=== PATIENT | male | born 1960 | race Caucasian/White ===

== ENCOUNTER → 2018-07-10 | Outpatient (CLI) | payer BC ==
--- NOTE | 2018-07-10 13:47 | US ---
EXAMINATION TYPE: US scrotum with doppler. Grayscale and color Doppler Duplex imaging performed of t he scrotum. DATE OF EXAM: 07/10/2018 COMPARISON: NONE CLINICAL HISTORY: N50.8 PAIN SWELLING. Pt states right testicle swelling, pt denies pain EXAM MEASUREMENTS: TESTICLES: Right Testicle: 4.7 x 2.1 x 2.9 cm Left Testicle: 5.3 x 1.8 x 3.6 cm EPIDIDYMIS HEAD: Left Epididymis: 1.4 cm Doppler performed to assess for testicular vascularity; good bilateral color flow and waveforms are s een. Presence of hydroceles: No Presence of varicoceles: No Small microcalcifications scattered throughout bilateral testicles/ In area of pt's palpable/swelli ng there is a probable epididymal cyst= 5.4 x 3.3 x 5.6 cm IMPRESSION: A 5.4 cm thin-walled cystic lesion adjacent to right testicle favors large epididymal cys t.
== END | disposition home or self-care (01) ==
LOC: RADUSWWP 12:46
PROVIDERS: ATTEND Urology
DX: N44.2 Benign cyst of testis (principal)
CPT/HCPCS: 76870; 93975

== ENCOUNTER → 2019-03-25 | Outpatient (CLI) | payer BC ==
--- NOTE | 2019-03-25 17:32 | CT ---
EXAMINATION TYPE: CT abdomen pelvis w con DATE OF EXAM: 03/25/2019 COMPARISON: None INDICATION: Difficulty urinating with strong family history of prostate cancer DLP: 2046.4 mGycm, Automated exposure control for dose reduction was used. CONTRAST: 100 mL of Isovue 300. Study performed with Oral Contrast TECHNIQUE: Axial images were obtained from above the diaphragm to the pubic rami in the axial plane a t 5 mm thick sections. Reconstructed images are reviewed on the computer in the coronal plane. FINDINGS: Limited CT sections are obtained the lung bases. The lung bases are clear. CT ABDOMEN: Liver: Normal Spleen: Normal Pancreas: Normal Adrenal glands: Left adrenal gland is thickened with a lower density structure measuring 1.8 cm in si ze. Been angiomyolipoma. Right adrenal gland appears normal. Gallbladder: Normal Kidneys: No masses are evident. No hydronephrosis is present. No cysts are present. Delayed images were obtained through the kidneys, which remain unremarkable. Aorta: Normal Inferior vena cava: Normal. CT PELVIS: Loops of bowel within the abdomen and pelvis are normal. There are loops of bowel which are incom pletely distended or lack oral contrast limiting their evaluation. Appendix: Normal as visualized. Urinary bladder: Normal. Genitourinary structures: Prostate hypertrophy is present. Punctate calcification is within the prost ate. Osseous structures: No suspicious lytic or sclerotic lesions. IMPRESSIONS: 1. Prostate hypertrophy. This could be further evaluated with MRI or prostate ultrasound.
== END | disposition home or self-care (01) ==
LOC: RADCTMAIN 12:17
PROVIDERS: ATTEND Urology
DX: N40.0 Benign prostatic hyperplasia without lower urinary tract symptoms (principal)
CPT/HCPCS: 74177; Q9967

== ENCOUNTER → 2019-04-14 | Outpatient (CLI) | payer BC ==
--- NOTE | 2019-04-14 15:05 | NM ---
EXAMINATION TYPE: NM bone scan whole body DATE OF EXAM: 04/14/2019 COMPARISON: NONE HISTORY: CT 03/25/2019 Delayed whole-body scanning was performed following the injection of 21 mCi Tc 99m MDP. Images acqui red 4 hours post injection. FINDINGS: Lucent area within the sternum corresponds to a benign-appearing lesion of the sternum. Normal uptake in the shoulders, feet, and right knee appear post arthritic. Faint uptake involving the vertebral column is nonspecific but likely degenerative. There is an area of abnormal uptake involving the medial margin the left pubic symphysis. This is non specific. IMPRESSION: 1. Area of abnormal uptake involving the pubic symphysis on the left is nonspecific. No definite kevin esponding CT abnormality. Metastasis in the differential diagnosis. 2. Faint nonspecific uptake throughout the vertebral column likely degenerative.
== END | disposition home or self-care (01) ==
LOC: RADNMMAIN 09:42
PROVIDERS: ATTEND Urology
DX: R93.89 Abnormal findings on diagnostic imaging of other specified body structures (principal)
CPT/HCPCS: 78306; A9503

== ENCOUNTER → 2019-05-08 | Outpatient (CLI) | payer BC ==
[2019-05-08 14:50] LABS: African American GFR (CKD) >90 (>60 ml/min/1.73 sqM); Blood Urea Nitrogen 23 mg/dL (9-20); Non-African American GFR(CKD) >90 (>60 ml/min/1.73 sqM)
--- NOTE | 2019-05-08 15:35 | CT ---
EXAMINATION TYPE: CT chest wo/w con DATE OF EXAM: 05/08/2019 COMPARISON: None HISTORY: Prostate CA, R/O metastatic disease CT DLP: 1347 mGycm Automated exposure control for dose reduction was used. CONTRAST: CT scan of the chest is performed without and with IV Contrast, patient injected with 100 mL of Isovu e 300. FINDINGS: LUNGS: The lungs are grossly clear, there is no concerning parenchymal mass or nodule identified. Panfilo cified granuloma present in the posterior costophrenic angle. There is no pleural effusion or pneumo thorax seen. The tracheobronchial tree is patent. MEDIASTINUM: There are no greater than 1 cm hilar or mediastinal lymph nodes. No pericardial effusi on is seen. AORTA: No additional significant abnormality is seen. OTHER: 2.4 cm left adrenal mass shows low attenuation in likely represents an adenoma. The spleen is enlarged. Low dense focus in the anterior margin of the left lobe of the liver likely represent cyst s and subcentimeter in size. Sclerotic focus present within the inferior T11 vertebral body measures 8 mm And is felt likely represent bone island. IMPRESSION: Splenomegaly. No evident lung mass. Old granulomatous disease. Indeterminate sclerotic f ocus within the thoracic spine as described, consider follow-up.
== END ==
LOC: RADCTMAIN 14:05
PROVIDERS: ATTEND Radiology Radiation Oncology
DX: C61 Malignant neoplasm of prostate (principal); R16.1 Splenomegaly, not elsewhere classified
CPT/HCPCS: 82565; 84520; 71270; 36415; Q9967

== ENCOUNTER → 2019-05-16 | Outpatient (CLI) | payer BC ==
--- NOTE | 2019-05-19 11:28 | PE ---
EXAMINATION TYPE: PET CT fusion skull to thigh DATE OF EXAM: 05/16/2019 COMPARISON: Nuclear medicine bone scan dated 04/14/2009 CT abdomen pelvis dated 03/25/2019 HISTORY: Neuroendocrine prostatic carcinoma. Small central carcinoma the prostate. TECHNIQUE: Following the intravenous administration of 12.92 mCi of F-18 FDG, whole body images are performed from the skull base to the midthigh. Images are reviewed on the computer in the coronal, a xial, and sagittal planes. Reconstructed rotating images are created on independent workstation and reviewed on the computer. A localization and attenuation correction CT is performed in conjunction with the PET scan. SCAN: Initial treatment strategy FINDINGS: Mediastinal background: 1.5 Abdominal background: 3.15 SKULL BASE AND NECK: No suspicious hypermetabolic uptake. CHEST, MEDIASTINUM, AND HILAR REGION: No suspicious hypermetabolic uptake. ABDOMEN AND PELVIS: No suspicious hypermetabolic uptake. OSSEOUS STRUCTURES: There are foci of hypermetabolic activity within the left inferior greater trocha nter (maximum SUV of 3.2), left ischium (maximum SUV of 6.04), left inferior pubic ramus (maximum SUV of 4.5), left pubic bone (maximum SUV 4.5), and 3 foci within the left hemisacrum (maximum SUV of 4. 5). Abnormal uptake is also seen within L4 (maximum SUV of 3.4). OTHER CT: Right maxillary mucosal thickening versus mucosal retention cyst measures 1.8 cm. Moderate degenerative changes of the cervical spine and lumbar spine. Corresponding with the abnormal areas of FDG uptake there are focal areas of sclerosis and L5 in the left hemisacrum. Heart is enlarged. No pericardial effusion. There is a small likely early calcifying lingular 2 mm pu lmonary nodule that is hyperdense. Calcified granuloma seen at the left lung base. Minimal subsegment al dependent atelectasis. Within the left adrenal gland there is a low-density 2.1 cm left adrenal gl and mass compatible with a benign adrenal adenoma. Pain stranding in the subcutaneous tissues of the anterior pelvis likely relates to recent injury or subcutaneous injections. IMPRESSION: Multifocal osseous metastasis within L4 and the left hemisacrum as well as left proximal femur. No abnormal adenopathy or evidence of visceral metastasis within the chest, abdomen, or pelvis .
== END | disposition home or self-care (01) ==
LOC: RADPETMAIN 14:33
PROVIDERS: ATTEND Internal Medicine Hematology & Oncology
DX: C7A.1 Malignant poorly differentiated neuroendocrine tumors (principal); C79.51 Secondary malignant neoplasm of bone
CPT/HCPCS: 78815; A9552

== ENCOUNTER → 2019-11-26 | Outpatient (CLI) | payer BC ==
[2019-11-26 10:24] LABS: African American GFR (CKD) >90 (>60 ml/min/1.73 sqM); Blood Urea Nitrogen 23 mg/dL (9-20); Non-African American GFR(CKD) >90 (>60 ml/min/1.73 sqM)
--- NOTE | 2019-11-26 12:25 | CT ---
EXAMINATION TYPE: CT abdomen pelvis wo/w con DATE OF EXAM: 11/26/2019 COMPARISON: PET CT May 16, 2019. CT abdomen and pelvis March 25, 2019 HISTORY: Prostate cancer progress study. CT DLP: 1971.2 mGycm, Automated Exposure Control for Dose Reduction was Utilized. CONTRAST: CT scan of the abdomen and pelvis is performed with oral and without and with IV Contrast, patient in jected with 100 mL of Isovue 300. FINDINGS: LUNG BASES: No significant abnormality is appreciated. LIVER/GB: No significant abnormality is appreciated. PANCREAS: No significant abnormality is seen. SPLEEN: No significant abnormality is seen. ADRENALS: There is 0.3 x 1.9 cm left adrenal low density mass, Hounsfield units average -4 on noncon trast consistent with benign lipid rich adenoma. KIDNEYS: There are a few subcentimeter simple-appearing thin-walled cysts scattered throughout both k idneys. No hydronephrosis is noted bilaterally. BOWEL: Oral contrast reaches proximal transverse colon. No suspicious or large bowel dilatation. PROSTATE/SEMINAL VESICLES: Normal-sized prostate. Scattered adjacent pelvic phleboliths. LYMPH NODES: No greater than 1cm abdominal or pelvic lymph nodes are appreciated. OSSEOUS STRUCTURES: Mild multilevel spurring. Facet arthropathy lower lumbar levels. Occasional scler otic focus for reference left central acetabulum on image 51 and a few lesions right proximal femur c oronal images 53 through 56 are all redemonstrated. Lesions corresponding to PET positive areas are n ot clearly identified on this or prior CT. OTHER: Heterogeneous soft tissue in the anterior abdominal wall adjacent umbilicus is now present. Co rrelate clinically for subcutaneous medical injection at this level. IMPRESSION: No suspicious new mass or adenopathy to suggest active neoplastic recurrence. Suspected osseous metastatic disease on comparison PET/CT less well seen on this and prior CT. No definitive ne w focal suspicious osseous lesions.
--- NOTE | 2019-11-27 11:38 | NM ---
EXAMINATION TYPE: NM bone scan whole body DATE OF EXAM: 11/26/2019 COMPARISON: PET/CT 05/16/2019 HISTORY: Prostate cancer Delayed whole-body scanning was performed following the injection of 23.8 mCi Tc 99m MDP. Images acq uired 4 hours post injection. FINDINGS: There is asymmetric focal activity of the left inferior pubic ramus and left pelvis. There is symmetr ic likely degenerative uptake of the bilateral shoulders, sternoclavicular joints, sacroiliac joints, knees, and feet. IMPRESSION: Asymmetric activity of the left inferior pubic ramus and left pelvis most likely represents metastati c prostate cancer.
== END | disposition home or self-care (01) ==
LOC: RADNMMAIN 09:34
PROVIDERS: ATTEND Radiology Radiation Oncology
DX: C61 Malignant neoplasm of prostate (principal)
CPT/HCPCS: 82565; 84520; 74178; 36415; 78306; A9503; Q9967

== ENCOUNTER → 2020-02-11 | Outpatient (CLI) | payer BC ==
[2020-02-12 12:36] LABS: T4/T8 Ratio (CD4:CD8) 2.6 (1.0-3.7)
== END | disposition home or self-care (01) ==
LOC: LABWHC1 07:09
PROVIDERS: ATTEND Family Medicine
DX: E55.9 Vitamin D deficiency, unspecified (principal); E56.8 Deficiency of other vitamins; D83.9 Common variable immunodeficiency, unspecified; T56.94XA Toxic effect of unspecified metal, undetermined, initial encounter
CPT/HCPCS: 36415; 82180; 82306; 82525; 83090; 86360

== ENCOUNTER → 2020-03-09 | Outpatient (CLI) | payer BC ==
[2020-03-09 11:25] LABS: Prostate Specific Antigen <0.1 ng/mL (0.0-4.5)
== END | disposition home or self-care (01) ==
LOC: LABWHC1 07:06
PROVIDERS: ATTEND Urology
DX: C61 Malignant neoplasm of prostate (principal)
CPT/HCPCS: 36415; 84153; 84403

== ENCOUNTER → 2020-09-16 | Outpatient (CLI) | payer BC ==
[2020-09-16 18:02] LABS: Prostate Specific Antigen <0.1 ng/mL (0.0-4.5)
== END | disposition home or self-care (01) ==
LOC: LABWHC1 08:50
PROVIDERS: ATTEND Urology
DX: C61 Malignant neoplasm of prostate (principal)
CPT/HCPCS: 36415; 84153; 84403

== ENCOUNTER → 2021-03-13 | Outpatient (CLI) | payer BC ==
[2021-03-13 16:10] LABS: Prostate Specific Antigen <0.01 ng/mL (0.00-4.50)
== END | disposition home or self-care (01) ==
LOC: LABWHC1 08:45
PROVIDERS: ATTEND Urology
DX: C61 Malignant neoplasm of prostate (principal)
CPT/HCPCS: 36415; 84153; 84403

== ENCOUNTER → 2021-09-20 | Outpatient (CLI) | payer BC ==
[2021-09-20 23:21] LABS: Prostate Specific Antigen <0.01 ng/mL (0.00-4.50)
== END | disposition home or self-care (01) ==
LOC: LABWHC1 16:00
PROVIDERS: ATTEND Urology
DX: C61 Malignant neoplasm of prostate (principal)
CPT/HCPCS: 36415; 84153; 84403

== ENCOUNTER 2021-11-11 12:25 | Emergency (ER) | payer BC ==
[2021-11-11 12:54] VITALS: RESP 16
[2021-11-11] MEDS ORDERED: RABIES IMMUNE GLOB 300 UNIT/ML 1 ML VIAL IM ONE (13:12)
[2021-11-11] MEDS ORDERED: RABIES VACCINE (PCEC) 2.5 UNIT KIT IM ONE (13:12)
--- NOTE | 2021-11-11 13:19 | ED ---
Animal Bite HPI - General Chief Complaint: Animal Bite Stated Complaint: possible bat bite Time Seen by Provider: 11/11/21 13:08 Source: patient, RN notes reviewed, old records reviewed Mode of arrival: ambulatory Limitations: no limitations - History of Present Illness Initial Comments: Well-appearing 61-year-old male presents to the emergency room with complaints of being exposed to a bat in the house when he woke up Saturday morning at 4:30 AM. Patient does not believe he was bitten by the bat however did call his primary care doctor who recommended that he come in for prophylaxis. Patient denies any complaints. He states he is recovering from coronavirus from 2 weeks ago. He states that he also has a history of stage IV prostate cancer on oral therapy. MD Complaint: other (Bat in the house) -: days(s) (1) Animal: bat Mechanism: other (Exposure) Severity scale (1-10): 0 Associated Symptoms: none - Related Data Patient Tetanus UTD: Yes Allergies Allergy/AdvReac Type Severity Reaction Status Date / Time No Known Allergies Allergy Verified 11/11/21 12:54 Review of Systems ROS Statement: Those systems with pertinent positive or pertinent negative responses have been documented in the HPI. ROS Other: All systems not noted in ROS Statement are negative. Past Medical History Additional Past Medical History / Comment(s): Stage 4 prostate cx. Covid - 10-30-2021 History of Any Multi-Drug Resistant Organisms: None Reported Past Surgical History: No Surgical Hx Reported Past Psychological History: No Psychological Hx Reported Smoking Status: Never smoker Past Alcohol Use History: Rare Past Drug Use History: None Reported General Exam Limitations: no limitations General appearance: alert, in no apparent distress Head exam: Present: atraumatic Eye exam: Absent: scleral icterus, conjunctival injection Neck exam: Absent: tenderness, meningismus Respiratory exam: Present: normal lung sounds bilaterally. Absent: respiratory distress, accessory muscle use Cardiovascular Exam: Present: regular rate Extremities exam: Present: normal capillary refill Back exam: Present: normal inspection, full ROM. Absent: tenderness, CVA tenderness (R), CVA tenderness (L), rash noted Neurological exam: Present: alert, oriented X3, normal gait Psychiatric exam: Present: normal affect, normal mood Skin exam: Present: warm, dry, intact, normal color. Absent: cyanosis, diaphoretic, petechiae, pallor Course Vital Signs 11/11/21 11/11/21 12:51 14:24 Temperature 98.2 F 98.1 F Pulse Rate 71 78 Respiratory 16 16 Rate Blood Pressure 143/101 151/89 O2 Sat by Pulse 99 97 Oximetry Medical Decision Making - Medical Decision Making Patient presents after exposed to a bat in the house. It was recommended by his primary care doctor for anti-rabies prophylaxis. Patient does not believe he was bitten by the bat. Immunizations are up-to-date. Patient was given rabies vaccine and immunoglobulin. He was directed to return on days 3, 7 and 14. I did recommend follow-up with oncologist to see if he requires any additional fifth dose since he is being treated for prostate cancer at this time and immunocompromised. Patient states understanding. Case discussed with Dr. Bradley. Disposition Clinical Impression: Rabies contact Disposition: HOME SELF-CARE Condition: Good Instructions (If sedation given, give patient instructions): Rabies Vaccine (By injection), Rabies Immune Globulin (By injection), Animal Bite (ED) Additional Instructions: Please return on days 3, 7, and 14 for additional vaccines. Notify your primary care doctor you are receiving these vaccinations. Discuss with your oncologist if it is necessary for you receive an additional fifth dose on day 28 since you are immunocompromised. Is patient prescribed a controlled substance at d/c from ED?: No Referrals: Davie Cardenas MD [Primary Care Provider] - 1-2 days Time of Disposition: 13:19
[2021-11-11] MEDS ORDERED: RABIES IMMUNE GLOB 300 UNIT/ML 5 ML VIAL IM ONE (13:30)
[2021-11-11 14:25] VITALS: BP 151/89; PULSE 78; TEMP 98.1
== END 2021-11-11 14:23 | disposition home or self-care (01) ==
LOC: EC 12:25
DX: Z20.3 Contact with and (suspected) exposure to rabies (principal); Z86.16 Personal history of COVID-19
CPT/HCPCS: 90375; 90471; 90675; 96372; 99282

== ENCOUNTER → 2021-11-17 | Outpatient (CLI) | payer BC ==
[2021-11-18 00:52] LABS: ALT 16 U/L (10-49); AST 16 U/L (14-35); Albumin 4.2 g/dL (3.8-4.9); Alkaline Phosphatase 101 U/L (41-126); Bilirubin, Conjugated <0.20 mg/dL (0.20-0.40); Globulin 2.1 g/dL (1.6-3.3); Prostate Specific Antigen <0.01 ng/mL (0.00-4.50); Total Protein 6.2 g/dL (6.2-8.2)
== END | disposition home or self-care (01) ==
LOC: LABWHC1 14:13
PROVIDERS: ATTEND Radiology Radiation Oncology
DX: C61 Malignant neoplasm of prostate (principal); C79.51 Secondary malignant neoplasm of bone; Z79.818 Long term (current) use of other agents affecting estrogen receptors and estrogen levels
CPT/HCPCS: 36415; 80076; 84153; 84403

== ENCOUNTER → 2022-02-14 | Outpatient (CLI) | payer BC ==
[2022-02-14 12:35] LABS: Prostate Specific Antigen <0.01 ng/mL (0.00-4.50); Testosterone <2.50 ng/mL (86.98-780.10)
== END | disposition home or self-care (01) ==
LOC: LABWHC1 07:08
PROVIDERS: ATTEND Urology
DX: C61 Malignant neoplasm of prostate (principal)
CPT/HCPCS: 36415; 84153; 84403

== ENCOUNTER → 2022-04-06 | Outpatient (CLI) | payer BC ==
[2022-04-06 10:44] LABS: HGB 13.2 g/dL (13.0-17.0); MCH 29.7 pg (27.0-32.0); MCV 89.9 fL (80.0-97.0); Mean Platelet Volume 9.7 fL (9.5-12.2); NRBC Per 100 WBC 0 /100 WBCS (0.0-0.0); Platelet Count 221 X 10*3/uL (140-440); RBC 4.45 X 10*6/uL (4.40-5.60); RDW 12.8 % (11.5-14.5); WBC 4.64 X 10*3/uL (4.50-10.00)
[2022-04-06 11:25] LABS: ALT 17 U/L (10-49); AST 17 U/L (14-35); African American GFR (CKD) 116.4 (60.0-200.0); Albumin 4.2 g/dL (3.8-4.9); Alkaline Phosphatase 107 U/L (41-126); BUN/Creat Ratio 17.14 Ratio (12.00-20.00); Calcium 9.3 mg/dL (8.7-10.3); Carbon Dioxide 25.7 mmol/L (20.0-27.5); Chloride 106 mmol/L (96-109); Globulin 2.1 g/dL (1.6-3.3); Glucose 94 mg/dL (70-110); Non-African American GFR(CKD) 100.4 (60.0-200.0); Potassium 4.2 mmol/L (3.5-5.5); Sodium 145 mmol/L (135-145); Total Protein 6.3 g/dL (6.2-8.2)
[2022-04-06 11:30] LABS: C Reactive Protein <0.30 mg/dL (0.00-0.80); Prostate Specific Antigen <0.01 ng/mL (0.00-4.50)
[2022-04-06 13:03] LABS: Estradiol <5.0 pg/mL
[2022-04-06 13:35] LABS: Erythrocyte Sedimentation Rate 11 mm/Hr (0-20)
== END | disposition home or self-care (01) ==
LOC: LABWHC1 07:05
PROVIDERS: ATTEND Family Medicine
DX: I10 Essential (primary) hypertension (principal); D64.9 Anemia, unspecified; E34.9 Endocrine disorder, unspecified; E72.10 Disorders of sulfur-bearing amino-acid metabolism, unspecified; E55.9 Vitamin D deficiency, unspecified; E78.5 Hyperlipidemia, unspecified; E53.9 Vitamin B deficiency, unspecified; M06.9 Rheumatoid arthritis, unspecified; R73.09 Other abnormal glucose
CPT/HCPCS: 36415; 80053; 82040; 82306; 82607; 82670; 82728; 83036; 83090; 84153; 84270; 84403; 85027; 85652; 86140

== ENCOUNTER → 2022-09-24 | Outpatient (CLI) | payer BC ==
[2022-09-25 19:05] LABS: Prostate Specific Antigen <0.14 ng/mL (0.00-4.50)
== END | disposition home or self-care (01) ==
LOC: LABWHC1 11:51
PROVIDERS: ATTEND Family Medicine
DX: C61 Malignant neoplasm of prostate (principal); E29.1 Testicular hypofunction
CPT/HCPCS: 36415; 84153; 84403

== ENCOUNTER → 2022-10-24 | Outpatient (CLI) | payer BC ==
--- NOTE | 2022-10-25 11:45 | MR ---
EXAMINATION TYPE: MR pelvis wo/w con DATE OF EXAM: 10/24/2022 COMPARISON: MR pelvis 01/10/2022 CLINICAL INDICATION:Male, 62 years old with history of Z85.46; Pain in left hip, groin, leg, ,Hx Stag e IV Prostate Ca, evaluate for mets TECHNIQUE: Triplane multisequence imaging was performed of the pelvis. IV Contrast: 10.5 cc Gadavist FINDINGS: Reproductive: Prostate: The prostate gland appears surgically absent. No soft tissue in the surgical bed. Seminal vesicle's: Symmetrical and decompressed slightly. There is lower signal on the right compared to left. There is intrinsic high T1 signal in the right likely representing sequela prior hemorrhage and/or infection. Testes: Right hydrocele. Bilateral fat-containing inguinal hernias. Bladder: Unremarkable. Bowel: Unremarkable as visualized. Peritoneum: No free fluid visualized. Lymph nodes: No evidence of adenopathy. Vasculature: Unremarkable. Musculoskeletal: Heterogenous bone marrow appearance. No abnormal bony edema on inversion recovery se quences. There is osteophyte formation of the acetabulum on the left with subchondral cystic change a nd the femoral heads bilaterally. Postcontrast enhancement of the synovium on the left is increased c ompared to the right. No enhancing bone marrow lesions. No displaced labral tear visualized on this n on-M technique MRI. Abdominal wall/soft tissues: No abnormal soft tissue mass or enhancement. IMPRESSION: 1. No lymphadenopathy or abnormal soft tissue in the surgical bed. There is a heterogenous appearanc e of the bone marrow which is indeterminate. If there is concern for prostate metastatic disease with elevated PSA, consider nuclear medicine gallium-68 PSMA pet/CT. 2. No evidence of fracture. The left hip demonstrates moderate osteoarthrosis changes with subchondr al cystic change and joint space narrowing.
== END | disposition home or self-care (01) ==
LOC: RADMRIMAIN 20:30
PROVIDERS: ATTEND Orthopaedic Surgery
DX: M16.12 Unilateral primary osteoarthritis, left hip (principal); M25.852 Other specified joint disorders, left hip; M79.606 Pain in leg, unspecified; R10.30 Lower abdominal pain, unspecified; Z85.46 Personal history of malignant neoplasm of prostate
CPT/HCPCS: 72197; A9585

== ENCOUNTER → 2022-11-09 | Outpatient (CLI) | payer BC ==
[2022-11-09 16:10] LABS: HCT 40.3 % (39.6-50.0); HGB 13.6 d/dL (13.0-17.0); MCH 29.6 pg (27.0-32.0); MCHC 33.7 d/dL (32.0-37.0); MCV 87.6 FL (80.0-97.0); NRBC Per 100 WBC 0 X 10*3/uL (0.00-0.01); Platelet Count 244 X 10*3/uL (140-440); RDW 13.3 % (11.5-14.5); WBC 5.63 X 10*3/uL (4.50-10.00)
[2022-11-09 17:56] LABS: ALT 20 U/L (10-49); AST 17 U/L (14-35); Albumin 4.3 d/dL (3.8-4.9); Albumin/Globulin Ratio 2.05 Ratio (1.60-3.17); Alkaline Phosphatase 105 U/L (41-126); BUN/Creat Ratio 21.88 Ratio (12.00-20.00); Blood Urea Nitrogen 17.5 mg/dL (9.0-27.0); C Reactive Protein, High Sens 0.509 mg/L (0.000-3.000); Calcium 9.3 mg/dL (8.7-10.3); Carbon Dioxide 23.6 mmol/L (21.6-31.8); Chloride 107 mmol/L (96-109); Estradiol 56.2 pg/mL; Globulin 2.1 d/dL (1.6-3.3); Glucose 99 mg/dL (70-110); Potassium 4.1 mmol/L (3.5-5.5); Sodium 143 mmol/L (135-145); Total Bilirubin 0.5 mg/dL (0.3-1.2); Total Protein 6.4 d/dL (6.2-8.2)
[2022-11-09 18:07] LABS: Prostate Specific Antigen <0.01 ng/mL (0.000-4.500); Testosterone <10.00 ng/dL (86.98-780.10)
[2022-11-09 18:28] LABS: Erythrocyte Sedimentation Rate 10 mm/Hr (0-20)
== END | disposition home or self-care (01) ==
LOC: LABWHC1 10:50
PROVIDERS: ATTEND Family Medicine
DX: I10 Essential (primary) hypertension (principal); D64.9 Anemia, unspecified; N41.0 Acute prostatitis; E34.9 Endocrine disorder, unspecified; E53.9 Vitamin B deficiency, unspecified; M06.9 Rheumatoid arthritis, unspecified; E72.10 Disorders of sulfur-bearing amino-acid metabolism, unspecified; E55.9 Vitamin D deficiency, unspecified; E78.49 Other hyperlipidemia; R73.09 Other abnormal glucose
CPT/HCPCS: 36415; 80053; 82306; 82607; 82670; 82728; 83036; 83090; 84153; 84402; 84403; 85027; 85652; 86141

== ENCOUNTER → 2023-01-31 | Outpatient (CLI) | payer BC ==
[2023-01-31 21:00] LABS: Prostate Specific Antigen <0.01 ng/mL (0.000-4.500); Testosterone <10.00 ng/dL (86.98-780.10)
== END | disposition home or self-care (01) ==
LOC: LABWHC1 14:48
PROVIDERS: ATTEND Radiology Radiation Oncology
DX: C79.51 Secondary malignant neoplasm of bone (principal); C61 Malignant neoplasm of prostate; Z79.818 Long term (current) use of other agents affecting estrogen receptors and estrogen levels
CPT/HCPCS: 36415; 84153; 84403

== ENCOUNTER → 2023-02-27 | Outpatient (CLI) | payer BC ==
[2023-02-27 17:17] LABS: HCT 38.9 % (39.6-50.0); HGB 13.4 g/dL (13.0-17.0); MCH 29.6 pg (27.0-32.0); MCHC 34.4 g/dL (32.0-37.0); MCV 86.1 FL (80.0-97.0); Mean Platelet Volume 9.9 FL (9.5-12.2); NRBC Per 100 WBC 0 X 10*3/uL (0.00-0.01); Platelet Count 244 X 10*3/uL (140-440); RBC 4.52 X 10*6/uL (4.40-5.60); RDW 13.2 % (11.5-14.5); WBC 5.42 X 10*3/uL (4.50-10.00)
[2023-02-27 17:44] LABS: Erythrocyte Sedimentation Rate 9 mm/Hr (0-20)
[2023-02-27 17:55] LABS: ALT 20 U/L (10-49); AST 24 U/L (14-35); Albumin 4.2 g/dL (3.8-4.9); Albumin/Globulin Ratio 1.91 Ratio (1.60-3.17); Alkaline Phosphatase 97 U/L (41-126); BUN/Creat Ratio 19.71 Ratio (12.00-20.00); Blood Urea Nitrogen 13.8 mg/dL (9.0-27.0); C Reactive Protein <0.30 mg/dL (0.00-0.80); Calcium 9.3 mg/dL (8.7-10.3); Carbon Dioxide 25.6 mmol/L (21.6-31.8); Chloride 106 mmol/L (96-109); Globulin 2.2 g/dL (1.6-3.3); Glucose 91 mg/dL (70-110); Potassium 4.6 mmol/L (3.5-5.5); Prostate Specific Antigen <0.01 ng/mL (0.000-4.500); Sodium 143 mmol/L (135-145); Total Bilirubin 0.4 mg/dL (0.3-1.2); Total Protein 6.4 g/dL (6.2-8.2)
== END | disposition home or self-care (01) ==
LOC: LABWHC1 11:29
PROVIDERS: ATTEND Family Medicine
DX: I10 Essential (primary) hypertension (principal); D64.9 Anemia, unspecified; E34.9 Endocrine disorder, unspecified; N41.9 Inflammatory disease of prostate, unspecified; E72.10 Disorders of sulfur-bearing amino-acid metabolism, unspecified; E55.9 Vitamin D deficiency, unspecified; E78.5 Hyperlipidemia, unspecified; E53.9 Vitamin B deficiency, unspecified; M06.9 Rheumatoid arthritis, unspecified; R73.09 Other abnormal glucose
CPT/HCPCS: 36415; 80053; 82306; 82607; 82672; 82728; 83036; 83090; 84153; 84402; 85027; 85652; 86140

== ENCOUNTER → 2023-07-17 | Outpatient (CLI) | payer BC, MEDICARE ==
[2023-07-17 11:21] LABS: HCT 40.6 % (39.6-50.0); HGB 13.3 g/dL (13.0-17.0); MCH 29.1 pg (27.0-32.0); MCHC 32.8 g/dL (32.0-37.0); MCV 88.8 FL (80.0-97.0); Mean Platelet Volume 10.1 FL (9.5-12.2); NRBC Per 100 WBC 0 X 10*3/uL (0.00-0.01); Platelet Count 245 X 10*3/uL (140-440); RBC 4.57 X 10*6/uL (4.40-5.60); RDW 13.1 % (11.5-14.5)
[2023-07-17 12:30] LABS: ALT 19 U/L (10-49); AST 13 U/L (14-35); Albumin 4.1 g/dL (3.8-4.9); Albumin/Globulin Ratio 1.71 Ratio (1.60-3.17); Alkaline Phosphatase 105 U/L (41-126); BUN/Creat Ratio 21.67 Ratio (12.00-20.00); Blood Urea Nitrogen 19.5 mg/dL (9.0-27.0); C Reactive Protein, High Sens 0.684 mg/L (0.000-3.000); Calcium 9.1 mg/dL (8.7-10.3); Carbon Dioxide 23.8 mmol/L (21.6-31.8); Chloride 107 mmol/L (96-109); Estradiol 72.3 pg/mL; Ferritin 98.1 ng/mL (22.0-322.0); Globulin 2.4 g/dL (1.6-3.3); Glucose 101 mg/dL (70-110); Potassium 4.5 mmol/L (3.5-5.5); Sodium 143 mmol/L (135-145); Testosterone <10.00 ng/dL (86.98-780.10); Total Bilirubin 0.3 mg/dL (0.3-1.2); Total Protein 6.5 g/dL (6.2-8.2)
[2023-07-17 12:31] LABS: Erythrocyte Sedimentation Rate 7 mm/Hr (0-20)
[2023-07-17 12:44] LABS: Prostate Specific Antigen <0.01 ng/mL (0.000-4.500)
== END | disposition home or self-care (01) ==
LOC: LABWHC1 07:03
PROVIDERS: ATTEND Family Medicine
DX: D64.9 Anemia, unspecified (principal); E34.9 Endocrine disorder, unspecified; N41.9 Inflammatory disease of prostate, unspecified; E72.10 Disorders of sulfur-bearing amino-acid metabolism, unspecified; M06.9 Rheumatoid arthritis, unspecified; I10 Essential (primary) hypertension; E55.9 Vitamin D deficiency, unspecified; E78.5 Hyperlipidemia, unspecified; R73.09 Other abnormal glucose; E53.9 Vitamin B deficiency, unspecified
CPT/HCPCS: 36415; 80053; 82306; 82607; 82670; 82728; 83036; 83090; 84153; 84402; 84403; 85027; 85652; 86141

== ENCOUNTER → 2023-10-12 | Outpatient (CLI) | payer MEDICARE, BC ==
[2023-10-13 08:19] LABS: Testosterone <10.00 ng/dL (86.98-780.10)
[2023-10-13 08:22] LABS: Prostate Specific Antigen <0.01 ng/mL (0.000-4.500)
== END | disposition home or self-care (01) ==
LOC: LABWHC1 10:22
PROVIDERS: ATTEND Urology
DX: C61 Malignant neoplasm of prostate (principal)
CPT/HCPCS: 36415; 84153; 84403

== ENCOUNTER → 2024-02-19 | Outpatient (CLI) | payer MEDICARE, BC ==
[2024-02-19 15:51] LABS: Basophils # (A) 0.05 X 10*3/uL (0.00-0.10); Basophils % (A) 0.9 %; Eosinophils # (A) 0.22 X 10*3/uL (0.04-0.35); HCT 40.1 % (39.6-50.0); HGB 13.1 g/dL (13.0-17.0); Lymphocytes # (A) 1.52 X 10*3/uL (0.90-5.00); Lymphocytes % (A) 27.6 %; MCH 28.7 pg (27.0-32.0); MCHC 32.7 g/dL (32.0-37.0); MCV 87.7 FL (80.0-97.0); Mean Platelet Volume 9.9 FL (9.5-12.2); Monocytes # (A) 0.46 X 10*3/uL (0.20-1.00); Monocytes % (A) 8.3 %; NRBC Per 100 WBC 0 X 10*3/uL (0.00-0.01); Neutrophils # (A) 3.24 X 10*3/uL (1.80-7.70); Neutrophils % (A) 58.8 %; Platelet Count 245 X 10*3/uL (140-440); RBC 4.57 X 10*6/uL (4.40-5.60); RDW 13.4 % (11.5-14.5); WBC 5.51 X 10*3/uL (4.50-10.00)
[2024-02-19 20:35] LABS: Chloride 108 mmol/L (96-109); Potassium 4.7 mmol/L (3.5-5.5); Prostate Specific Antigen <0.01 ng/mL (0.000-4.500); Sodium 143 mmol/L (135-145)
[2024-02-19 20:56] LABS: ALT 25 U/L (10-49); AST 19 U/L (14-35); Albumin 4.3 g/dL (3.8-4.9); Albumin/Globulin Ratio 1.95 Ratio (1.60-3.17); Alkaline Phosphatase 102 U/L (41-126); BUN/Creat Ratio 26.75 Ratio (12.00-20.00); Blood Urea Nitrogen 21.4 mg/dL (9.0-27.0); Calcium 9.1 mg/dL (8.7-10.3); Carbon Dioxide 24.4 mmol/L (21.6-31.8); Globulin 2.2 g/dL (1.6-3.3); Glucose 91 mg/dL (70-110); Total Bilirubin 0.5 mg/dL (0.3-1.2); Total Protein 6.5 g/dL (6.2-8.2)
== END | disposition home or self-care (01) ==
LOC: LABWHC1 10:39
PROVIDERS: ATTEND Internal Medicine Medical Oncology
DX: C61 Malignant neoplasm of prostate (principal); C79.51 Secondary malignant neoplasm of bone
CPT/HCPCS: 36415; 80053; 84153; 85025

== ENCOUNTER → 2024-03-14 | Outpatient (CLI) | payer MEDICARE, BC ==
[2024-03-14 13:28] LABS: HCT 42.1 % (39.6-50.0); HGB 13.7 g/dL (13.0-17.0); MCH 28.1 pg (27.0-32.0); MCHC 32.5 g/dL (32.0-37.0); MCV 86.4 FL (80.0-97.0); Mean Platelet Volume 9.9 FL (9.5-12.2); NRBC Per 100 WBC 0 X 10*3/uL (0.00-0.01); Platelet Count 265 X 10*3/uL (140-440); RBC 4.87 X 10*6/uL (4.40-5.60); RDW 13.2 % (11.5-14.5); WBC 5.48 X 10*3/uL (4.50-10.00)
[2024-03-14 14:04] LABS: ALT 24 U/L (10-49); AST 22 U/L (14-35); Albumin 4.4 g/dL (3.8-4.9); Albumin/Globulin Ratio 1.91 Ratio (1.60-3.17); Alkaline Phosphatase 113 U/L (41-126); BUN/Creat Ratio 21.75 Ratio (12.00-20.00); Blood Urea Nitrogen 17.4 mg/dL (9.0-27.0); Calcium 9.4 mg/dL (8.7-10.3); Carbon Dioxide 23.2 mmol/L (21.6-31.8); Chloride 106 mmol/L (96-109); Estradiol <20.0 pg/mL; Ferritin 85.9 ng/mL (22.0-322.0); Globulin 2.3 g/dL (1.6-3.3); Glucose 93 mg/dL (70-110); Potassium 4.5 mmol/L (3.5-5.5); Sodium 141 mmol/L (135-145); Testosterone <10.00 ng/dL (86.98-780.10); Total Bilirubin 0.5 mg/dL (0.3-1.2); Total Protein 6.7 g/dL (6.2-8.2)
[2024-03-14 14:07] LABS: C Reactive Protein <0.30 mg/dL (0.00-0.80); Prostate Specific Antigen <0.01 ng/mL (0.000-4.500)
[2024-03-14 14:43] LABS: Erythrocyte Sedimentation Rate 11 mm/Hr (0-20)
== END | disposition home or self-care (01) ==
LOC: LABWHC1 07:29
PROVIDERS: ATTEND Family Medicine
DX: I10 Essential (primary) hypertension (principal); D64.9 Anemia, unspecified; E34.9 Endocrine disorder, unspecified; N41.9 Inflammatory disease of prostate, unspecified; E72.10 Disorders of sulfur-bearing amino-acid metabolism, unspecified; E55.9 Vitamin D deficiency, unspecified; E78.5 Hyperlipidemia, unspecified; E53.9 Vitamin B deficiency, unspecified; R73.09 Other abnormal glucose; M06.9 Rheumatoid arthritis, unspecified
CPT/HCPCS: 36415; 80053; 82306; 82607; 82670; 82728; 83036; 83090; 84153; 84402; 84403; 85027; 85652; 86140

== ENCOUNTER → 2024-04-20 | Outpatient (CLI) | payer MEDICARE, BC ==
[2024-04-20 20:46] LABS: Prostate Specific Antigen <0.01 ng/mL (0.000-4.500); Testosterone <10.00 ng/dL (86.98-780.10)
== END | disposition home or self-care (01) ==
LOC: LABWHC1 13:13
PROVIDERS: ATTEND Urology
DX: C61 Malignant neoplasm of prostate (principal)
CPT/HCPCS: 36415; 84153; 84403

== ENCOUNTER → 2024-07-18 | Outpatient (CLI) | payer MEDICARE ==
[2024-07-18 14:04] LABS: ALT 25 U/L (10-49); AST 25 U/L (14-35); Albumin 4.1 g/dL (3.8-4.9); Albumin/Globulin Ratio 1.78 Ratio (1.60-3.17); Alkaline Phosphatase 103 U/L (41-126); Calcium 8.7 mg/dL (8.7-10.3); Carbon Dioxide 24.4 mmol/L (21.6-31.8); Chloride 117 mmol/L (96-109); Estradiol <20.0 pg/mL; Ferritin 80.7 ng/mL (22.0-322.0); Globulin 2.3 g/dL (1.6-3.3); Glucose 102 mg/dL (70-110); Potassium 4.5 mmol/L (3.5-5.5); Sodium 155 mmol/L (135-145); Total Bilirubin 0.5 mg/dL (0.3-1.2); Total Protein 6.4 g/dL (6.2-8.2)
[2024-07-18 14:05] LABS: Basophils # (A) 0.03 X 10*3/uL (0.00-0.10); Basophils % (A) 0.6 %; Eosinophils % (A) 4.3 %; HCT 42.1 % (39.6-50.0); HGB 13.1 g/dL (13.0-17.0); Lymphocytes # (A) 1.08 X 10*3/uL (0.90-5.00); Lymphocytes % (A) 23.1 %; MCH 28.3 pg (27.0-32.0); MCHC 31.1 g/dL (32.0-37.0); MCV 90.9 FL (80.0-97.0); Mean Platelet Volume 9.8 FL (9.5-12.2); Monocytes # (A) 0.82 X 10*3/uL (0.20-1.00); Monocytes % (A) 17.5 %; NRBC Per 100 WBC 0 X 10*3/uL (0.00-0.01); Neutrophils # (A) 2.54 X 10*3/uL (1.80-7.70); Neutrophils % (A) 54.3 %; Platelet Count 236 X 10*3/uL (140-440); RBC 4.63 X 10*6/uL (4.40-5.60); RDW 13.8 % (11.5-14.5); WBC 4.68 X 10*3/uL (4.50-10.00)
[2024-07-18 14:14] LABS: Testosterone <10.00 ng/dL (86.98-780.10)
[2024-07-18 14:35] LABS: Erythrocyte Sedimentation Rate 6 mm/Hr (0-20)
== END | disposition home or self-care (01) ==
LOC: LABWHC1 08:07
PROVIDERS: ATTEND Nurse Practitioner Family
DX: I10 Essential (primary) hypertension (principal); E78.5 Hyperlipidemia, unspecified; E55.9 Vitamin D deficiency, unspecified; E72.10 Disorders of sulfur-bearing amino-acid metabolism, unspecified; E53.9 Vitamin B deficiency, unspecified; E34.9 Endocrine disorder, unspecified; N41.9 Inflammatory disease of prostate, unspecified; D64.9 Anemia, unspecified; M06.9 Rheumatoid arthritis, unspecified; R73.09 Other abnormal glucose
CPT/HCPCS: 36415; 80053; 82306; 82607; 82670; 82728; 83036; 83090; 84153; 84402; 84403; 85025; 85652; 86141

== ENCOUNTER 2024-07-24 06:24 | Observation (INO) | payer MEDICARE ==
--- NOTE | 2024-07-24 06:47 | ED ---
Abdominal Pain HPI - General Chief Complaint: Abdominal Pain Stated Complaint: Abd pain Time Seen by Provider: 07/24/24 06:29 Source: patient, RN notes reviewed Mode of arrival: wheelchair Limitations: no limitations - History of Present Illness Initial Comments: This is a 64-year-old male who presents to the emergency department for abdominal pain. Patient states that a week ago he was sick with a cough and URI symptoms. He noticed that when he coughed he would have pain in the right lower quadrant. He was treated for the URI with antibiotics and steroids, and states that the URI has since started to improve. However, the pain has since persis edwin. This morning when he woke up the pain intensified substantially, prompting him to come in for evaluation today. He did have some nausea earlier today. Denies any radiation of pain elsewhere. He has not had any diarrhea or constipation. Denies any history of similar pain in the past. MD Complaint: abdominal pain - Related Data Home Medications Medication Instructions Recorded Confirmed Albuterol Nebulized [Ventolin 2.5 mg INHALATION RT-Q4H PRN 07/24/24 07/24/24 Nebulized] Azithromycin [Zithromax Z Pack] See Taper PO DIRECTED 07/24/24 07/24/24 Chlorpheniramine/Dextromethorp 2 tab PO HS PRN 07/24/24 07/24/24 [Coricidin Hbp Cough & Cold Tab] Ibuprofen [Motrin Ib] 200 mg PO Q8H PRN 07/24/24 07/24/24 predniSONE [Deltasone] 20 mg PO DAILY 07/24/24 07/24/24 Allergies Allergy/AdvReac Type Severity Reaction Status Date / Time No Known Allergies Allergy Verified 07/24/24 09:58 Review of Systems ROS Statement: Those systems with pertinent positive or pertinent negative responses have been documented in the HPI. ROS Other: All systems not noted in ROS Statement are negative. Past Medical History Additional Past Medical History / Comment(s): Stage 4 prostate cx. Covid - 10-30-2021 History of Any Multi-Drug Resistant Organisms: None Reported Past Surgical History: No Surgical Hx Reported Past Psychological History: No Psychological Hx Reported Smoking Status: Never smoker Past Alcohol Use History: Occasional Past Drug Use History: None Reported General Exam Limitations: no limitations General appearance: alert, in distress Head exam: Present: atraumatic, normocephalic, normal inspection Respiratory exam: Present: normal lung sounds bilaterally. Absent: respiratory distress, wheezes, rales, rhonchi, stridor Cardiovascular Exam: Present: regular rate, normal rhythm GI/Abdominal exam: Present: soft, tenderness (Right mid to lower abdomen), normal bowel sounds. Absent: distended Neurological exam: Present: alert, oriented X3, CN II-XII intact Psychiatric exam: Present: normal affect, normal mood Skin exam: Present: warm, dry, intact, normal color. Absent: rash Course Vital Signs 07/24/24 07/24/24 07/24/24 06:25 07:19 08:40 Temperature 97.4 F L 98.5 F Pulse Rate 79 64 60 Respiratory 18 16 18 Rate Blood Pressure 191/94 186/84 162/67 O2 Sat by Pulse 95 93 L 91 L Oximetry 07/24/24 07/24/24 09:30 10:30 Temperature 98.5 F Pulse Rate 60 56 L Respiratory 18 18 Rate Blood Pressure 133/68 145/71 O2 Sat by Pulse 92 L 92 L Oximetry Medical Decision Making - Medical Decision Making This is a 64 year old male who presents to the emergency department for abdominal pain. Was pt. sent in by a medical professional or institution? @ -No Did you speak to anyone other than the patient for history? @ -No Did you review nursing and triage notes? @ -Yes, and I agree, it is accurate with regards to the patient's symptoms. Were old charts reviewed? @ -No Differential Diagnosis? @ -Differential Abdominal Pain Men: Appendicitis, cholecystitis, diverticulosis, ischemic bowel, pancreatitis, hepatitis, UTI, gastroenteritis, AAA, incarcerated hernia, bowel obstruction, constipation, inflammatory bowel, hepatitis, peptic ulcer disease, splenic infarction, perforated viscus, testicular torsion, this is not meant to be an all-inclusive list EKG interpreted by me (3pts min.)? @ -EKG interpreted by me demonstrating the following: Sinus rhythm. Ventr icular rate 64 bpm, LA interval 180 ms, QRS duration 92 ms, QTc 435 ms. X-rays interpreted by me (1pt min.)? @ -Chest x-ray obtained. My interpretation identifies increased interstitial density. CT interpreted by me (1pt min.)? @ -CT scan of the abdomen and pelvis obtained. My interpretation identifies a right rectus sheath hematoma U/S interpreted by me (1pt. min.)? @ -Not obtained What testing was considered but not performed? (CT, X-rays, U/S, labs)? Why? @ -None What meds were considered but not given? Why? @ -None Did you discuss the management of the patient with other professionals? @ -Yes, Dr. Guerrero, who accepts the patient for admission. Did you reconcile home meds? @ -No Was smoking cessation discussed for >3mins.? @ -No Was critical care preformed (if so, how long)? @ -No Were there social determinants of health that impacted care today? How? (Homelessness, low income, unemployed, alcoholism, drug addiction, transportation, low edu. Level, literacy, decrease access to med. care, detention, rehab)? @ -No Was there de-escalation of care discussed even if they declined? (Discuss DNR or withdrawal of care, Hospice)? @ -No What co-morbidities impacted this encounter? (DM, HTN, Smoking, COPD, CAD, Cancer, CVA, Hep., AIDS, mental health diagnosis, sleep apnea, morbid obesity)? @ -Hx of prostate cancer Was patient admitted / discharged? @ -Admitted. Lab work unremarkable. Urinalysis negative for signs of infection. CT scan of the abdomen and pelvis demonstrates a right rectus sheath intramuscular hematoma measuring 8 cm. He does also have new patchy interstitial opacities at the lung bases. They advised correlation for bronchitis, aspiration, or other developing pneumonitis. Patient is not on any blood thinners, however he continued to be in fairly substantial pain. He did require IV pain medication in order to get the pain to a tolerable level. Given the size of the hematoma and the severity of the patient's distress, he was admitted to medicine for further management. Consult placed for general surgery. We did obtain a chest x-ray given the opacities in the lungs noted on the CT scan. This demonstrated increased interstitial density that could reflect bronchitis, chronic asthma,or atypical pneumonias. He is already on azithromycin and prednisone. Cepheid 4-Plex test ordered with results pending at the time of admission. Will defer further management of this to admitting team. Case discussed with ED attending Dr. Saucedo. Undiagnosed new problem with uncertain prognosis? @ -None Drug Therapy requiring intensive monitoring for toxicity (Heparin, Nitro, Insulin, Cardizem)? @ -None Were any procedures done? @ -None Diagnosis/symptom? @ -Rectus sheath hematoma, intractable abdominal pain Acute, or Chronic, or Acute on Chronic? @ -Acute Uncomplicated (without systemic symptoms) or Complicated (systemic symptoms)? @ -Uncomplicated Side effects of treatment? @ -None Exacerbation, Progression, or Severe Exacerbation] @ -Not applicable Poses a threat to life or bodily function? @ -Yes, the pain is limiting his ability to function - Lab Data Result diagrams: 07/24/24 14:34 07/24/24 06:53 Lab Results 07/24/24 07/24/24 07/24/24 Range/Units 06:53 06:53 06:53 WBC 6.06 (4.50-10.00) 10*3/uL RBC 4.90 (4.40-5.60) 10*6/uL Hgb 14.1 (13.0-17.0) g/dL Hct 41.1 (39.6-50.0) % MCV 83.9 (80.0-97.0) fL MCH 28.8 (27.0-32.0) pg MCHC 34.3 (32.0-37.0) g/dL Plt Count 236 (140-440) 10*3/uL MPV 9.5 (9.5-12.2) fL Immature Gran % (Auto) 0.2 % Neutrophils % 59.4 % Lymphocytes % 28.7 % Monocytes % 10.7 % Eosinophils % 0.8 % Basophils % 0.2 % Immature Gran # 0.01 (0.00-0.04) 10*3/uL Neutrophils # 3.60 (1.80-7.70) 10*3/uL Lymphocytes # 1.74 (0.90-5.00) 10*3/uL Monocytes # 0.65 (0.20-1.00) 10*3/uL Eosinophils # 0.05 (0.04-0.35) 10*3/uL Basophils # 0.01 (0.00-0.10) 10*3/uL Sodium 138 (137-145) mmol/L Potassium 3.5 (3.5-5.1) mmol/L Chloride 104 (98-107) mmol/L Carbon Dioxide 26 (22-30) mmol/L Anion Gap 8 mmol/L BUN 16 (9-20) mg/dL Creatinine 0.61 L (0.66-1.25) mg/dL Est GFR (CKD-EPI)AfAm >90 (>60 ml/min/1.73 sqM) Est GFR (CKD-EPI)NonAf >90 (>60 ml/min/1.73 sqM) Glucose 100 H (74-99) mg/dL Plasma Lactic Acid Mata 1.0 (0.7-2.0) mmol/L Calcium 8.9 (8.4-10.2) mg/dL Total Bilirubin 1.0 (0.2-1.3) mg/dL AST 24 (17-59) U/L ALT 25 (4-49) U/L Alkaline Phosphatase 94 (38-126) U/L Total Protein 7.0 (6.3-8.2) g/dL Albumin 4.2 (3.5-5.0) g/dL Amylase 40 (30-110) U/L Lipase 40 (23-300) U/L Urine Color Urine Appearance (Clear) Urine pH (5.0-8.0) Ur Specific [place] (1.001-1.035) Urine Protein (Negative) Urine Glucose (UA) (Negative) Urine Ketones (Negative) Urine Blood (Negative) Urine Nitrite (Negative) Urine Bilirubin (Negative) Urine Urobilinogen (<2.0) mg/dL Ur Leukocyte Esterase (Negative) 07/24/24 Range/Units 08:49 WBC (4.50-10.00) 10*3/uL RBC (4.40-5.60) 10*6/uL Hgb (13.0-17.0) g/dL Hct (39.6-50.0) % MCV (80.0-97.0) fL MCH (27.0-32.0) pg MCHC (32.0-37.0) g/dL Plt Count (140-440) 10*3/uL MPV (9.5-12.2) fL Immature Gran % (Auto) % Neutrophils % % Lymphocytes % % Monocytes % % Eosinophils % % Basophils % % Immature Gran # (0.00-0.04) 10*3/uL Neutrophils # (1.80-7.70) 10*3/uL Lymphocytes # (0.90-5.00) 10*3/uL Monocytes # (0.20-1.00) 10*3/uL Eosinophils # (0.04-0.35) 10*3/uL Basophils # (0.00-0.10) 10*3/uL Sodium (137-145) mmol/L Potassium (3.5-5.1) mmol/L Chloride (98-107) mmol/L Carbon Dioxide (22-30) mmol/L Anion Gap mmol/L BUN (9-20) mg/dL Creatinine (0.66-1.25) mg/dL Est GFR (CKD-EPI)AfAm (>60 ml/min/1.73 sqM) Est GFR (CKD-EPI)NonAf (>60 ml/min/1.73 sqM) Glucose (74-99) mg/dL Plasma Lactic Acid Mata (0.7-2.0) mmol/L Calcium (8.4-10.2) mg/dL Total Bilirubin (0.2-1.3) mg/dL AST (17-59) U/L ALT (4-49) U/L Alkaline Phosphatase (38-126) U/L Total Protein (6.3-8.2) g/dL Albumin (3.5-5.0) g/dL Amylase (30-110) U/L Lipase (23-300) U/L Urine Color Colorless Urine Appearance Clear (Clear) Urine pH 6.5 (5.0-8.0) Ur Specific [place] 1.034 (1.001-1.035) Urine Protein Negative (Negative) Urine Glucose (UA) Negative (Negative) Urine Ketones Negative (Negative) Urine Blood Negative (Negative) Urine Nitrite Negative (Negative) Urine Bilirubin Negative (Negative) Urine Urobilinogen <2.0 (<2.0) mg/dL Ur Leukocyte Esterase Negative (Negative) - Radiology Data Radiology results: report reviewed, image reviewed Disposition Clinical Impression: Rectus sheath hematoma, Intractable abdominal pain Disposition: ADMITTED IP TO THIS HOSP
[2024-07-24] MEDS: ONDANSETRON 4 MG/2 ML VIAL IVP STA (07:02)
[2024-07-24] MEDS: KETOROLAC 15 MG/ML 1 ML VIAL IVP STA (07:03)
[2024-07-24] MEDS: MORPHINE SULFATE 4 MG/ML SYRINGE IVP STA (07:03)
[2024-07-24 07:04] LABS: Basophils # (A) 0.01 10*3/uL (0.00-0.10); Basophils % (A) 0.2 %; Eosinophils # (A) 0.05 10*3/uL (0.04-0.35); Eosinophils % (A) 0.8 %; HCT 41.1 % (39.6-50.0); HGB 14.1 g/dL (13.0-17.0); Lymphocytes # (A) 1.74 10*3/uL (0.90-5.00); Lymphocytes % (A) 28.7 %; MCH 28.8 pg (27.0-32.0); MCHC 34.3 g/dL (32.0-37.0); MCV 83.9 fL (80.0-97.0); Mean Platelet Volume 9.5 fL (9.5-12.2); Monocytes # (A) 0.65 10*3/uL (0.20-1.00); Monocytes % (A) 10.7 %; Neutrophils % (A) 59.4 %; Platelet Count 236 10*3/uL (140-440); WBC 6.06 10*3/uL (4.50-10.00)
[2024-07-24] MEDS: LACTATED RINGERS 1,000 ML IV ONE (07:04)
[2024-07-24 08:01] LABS: ALT 25 U/L (4-49); AST 24 U/L (17-59); African American GFR (CKD) >90 (>60 ml/min/1.73 sqM); Albumin 4.2 g/dL (3.5-5.0); Alkaline Phosphatase 94 U/L (38-126); Amylase 40 U/L (30-110); Anion Gap 8 mmol/L; Blood Urea Nitrogen 16 mg/dL (9-20); Calcium 8.9 mg/dL (8.4-10.2); Carbon Dioxide 26 mmol/L (22-30); Chloride 104 mmol/L (98-107); Glucose 100 mg/dL (74-99); Lipase 40 U/L (23-300); Non-African American GFR(CKD) >90 (>60 ml/min/1.73 sqM); Potassium 3.5 mmol/L (3.5-5.1); Sodium 138 mmol/L (137-145)
[2024-07-24] MEDS: HYDROmorphone 0.5 MG/0.5 ML SYRINGE IVP STA (08:04)
[2024-07-24 09:14] LABS: Appearance,Urine Clear (Clear); Bilirubin,Urine Negative (Negative); Blood,Urine Negative (Negative); Color,Urine Colorless; Glucose,Urine (UA) Negative (Negative); Ketones,Urine Negative (Negative); Leukocyte Esterase,Urine Negative (Negative); Nitrite,Urine Negative (Negative); PH, Urine 6.5 (5.0-8.0); Protein,Urine Negative (Negative); Specific Gravity,Urine 1.034 (1.001-1.035); Urobilinogen,Urine <2.0 mg/dL (<2.0)
--- NOTE | 2024-07-24 09:16 | CT ---
EXAMINATION TYPE: CT abdomen pelvis w con DATE OF EXAM: 07/24/2024 8:27 AM COMPARISON: 11/26/2019 CLINICAL INDICATION: Male, 64 years old with history of RLQ abdominal pain; RLQ abdominal pain x 1 d ay. Hx of prostate ca. TECHNIQUE: Axial CT abdomen pelvis w con;Sagittal and coronal reformats were created on a separate w orkstation. Contrast used:100ml mL of Isovue 300 with IV Contrast, (none if empty) Oral contrast used: without Oral Contrast (none if empty) CT DLP: 1681.4 mGycm, Automated exposure control for dose reduction was used. FINDINGS: LOWER CHEST: Heart borderline enlarged. No pericardial effusion. Patchy interstitial changes in the l ower lungs appear increased with peribronchial cuffing. No pleural effusion. ABDOMEN LIVER: Mild enlarged 18.4 cm. Tiny 9 mm cyst left liver lobe GALLBLADDER AND BILE DUCTS: Gallbladder borderline hydropic at 4.0 cm wide. No surrounding inflammati on. No biliary ductal dilatation. PANCREAS: Unremarkable. SPLEEN: Borderline in size at 13.9 cm measured on coronal series. ADRENAL GLANDS: Slight interval enlargement of the patient's left adrenal nodule currently 3.4 cm sarah ruslan 2.3 cm, previously. Right adrenal gland within normal limits. KIDNEYS AND URETERS: No evidence of hydronephrosis or renal calculus. The ureters are unremarkable. PELVIS BLADDER: No evidence for wall thickening or mass given limitations of exam. REPRODUCTIVE: Unremarkable. A few pelvic phleboliths are noted. ABDOMEN & PELVIS STOMACH AND BOWEL: Small hiatal hernia. No evidence of bowel obstruction. Normal appendix. Scattered mild stool. PERITONEUM/RETROPERITONEUM: No evidence of pneumoperitoneum or free fluid. VASCULATURE: No evidence of aortic aneurysm. MUSCULOSKELETAL: Facet arthropathy lower lumbar spine with trace grade 1 anterolisthesis L4-L5. LYMPH NODES: No gross evidence for lymphadenopathy. SOFT TISSUE/ABDOMINAL WALL: There is a right rectus sheath intramuscular hematoma expanding the muscl e up to 8.4 cm craniocaudal by 7.1 cm wide by 3.3 cm thick. The contralateral muscle is only 1.2 cm t hick. IMPRESSION: 1. Right rectus sheath intramuscular hematoma measuring approximately 8.4 x 7.1 x 3.3 cm. 2. Mild hepatomegaly at 18.4 cm. 3. New patchy interstitial opacities at the lung bases. Correlate for bronchitis, some aspiration, or other developing pneumonitis. 4. Interval slight enlargement of the patient's left adrenal nodule compared to 11/26/2019. The nodule previously measured 2.3 cm and currently measures 3.4 cm. Indolent behavior favors a benign etiology . Consider a 6-12 month follow up adrenal mass protocol CT to reassess and further characterize. [facility], Workstation: [facility], 07/24/2024 9:13 AM
[2024-07-24] MEDS ORDERED: MORPHINE SULFATE 4 MG/ML SYRINGE IV PRN (09:31)
[2024-07-24] MEDS ORDERED: ACETAMINOPHEN TAB 325 MG TAB PO PRN (09:31)
[2024-07-24] MEDS ORDERED: ONDANSETRON 4 MG/2 ML VIAL IVP PRN (09:31)
[2024-07-24] MEDS ORDERED: HYDROcodone/APAP 5-325MG 1 EACH TAB PO PRN (09:31)
[2024-07-24] MEDS ORDERED: NALOXONE 0.4 MG/ML 1 ML VIAL IV PRN (09:31)
[2024-07-24 10:39] LABS: Partial Thromboplastin Time 24.4 sec (22.0-30.0); Prothrombin Time 10.7 sec (10.0-12.5)
--- NOTE | 2024-07-24 10:50 | XR ---
EXAMINATION TYPE: XR chest 2V DATE OF EXAM: 07/24/2024 10:26 AM COMPARISON: None CLINICAL INDICATION: Male, 64 years old with history of Cough, , TECHNIQUE: Frontal and lateral views FINDINGS: Heart upper limits of normal size. Mild interstitial density. No meri consolidation or pleural effus ion. DISH lower thoracic spine. IMPRESSION: Increased interstitial density could reflect bronchitis, chronic asthma, or atypical pneumonias. Clin ically correlate. [facility], Workstation: [facility], 07/24/2024 10:48 AM
--- NOTE | 2024-07-24 12:15 | P.CON ---
Consult Note - . Consult date: 07/24/24 Assessment/Plan:: This is a 64-year-old male who presents to the emergency department for abdominal pain. Patient states that a week ago he was sick with a cough and URI symptoms. He noticed that when he coughed he would have pain in the right lower quadrant. He was treated for the URI with antibiotics and steroids, and states that the URI has since started to improve. However, the pain has since persisted. This morning when he woke up the pain intensified substantially, prompting him to come in for evaluation today. He did have some nausea earlier today. Denies any radiation of pain elsewhere. He has not had any diarrhea or constipation. Denies any history of similar pain in the past. CT-AP shows rectus sheath hematoma with no active extravasation Review of Systems ROS Statement: Those systems with pertinent positive or pertinent negative responses have been documented in the HPI. ROS Other: All systems not noted in ROS Statement are negative. Past Medical History Additional Past Medical History / Comment(s): Stage 4 prostate cx. Covid - 10-30-2021 History of Any Multi-Drug Resistant Organisms: None Reported Past Surgical History: No Surgical Hx Reported Past Psychological History: No Psychological Hx Reported Smoking Status: Never smoker Past Alcohol Use History: Occasional Past Drug Use History: None Reported General Exam Limitations: no limitations General appearance: alert, in distress Head exam: Present: atraumatic, normocephalic, normal inspection Respiratory exam: Present: normal lung sounds bilaterally. Absent: respiratory distress, wheezes, rales, rhonchi, stridor Cardiovascular Exam: Present: regular rate, normal rhythm GI/Abdominal exam: Present: soft, tenderness (Right mid to lower abdomen), normal bowel sounds. Absent: distended Neurological exam: Present: alert, oriented X3, CN II-XII intact Psychiatric exam: Present: normal affect, normal mood Skin exam: Present: warm, dry, intact, normal color. Absent: rash 64 year old male with rectus sheath hematoma -CT-AP reviewed and there is no active extravasation -OK to apply ice packs to abdomen -Repeat hemoglobin at 1500 -If hemoglobin is stable, patient can be discharge from surgery standpoint -Regular Diet Tod Boykin DO [facility] [phone]
[2024-07-24 14:56] LABS: HCT 38.2 % (39.6-50.0); HGB 12.9 g/dL (13.0-17.0); RBC 4.39 10*6/uL (4.40-5.60)
[2024-07-24 14:57] LABS: Basophils # (A) 0.01 10*3/uL (0.00-0.10); Basophils % (A) 0.1 %; Eosinophils # (A) 0.03 10*3/uL (0.04-0.35); Eosinophils % (A) 0.4 %; Lymphocytes % (A) 24.3 %; MCH 29.4 pg (27.0-32.0); MCHC 33.8 g/dL (32.0-37.0); Mean Platelet Volume 9.6 fL (9.5-12.2); Monocytes # (A) 0.75 10*3/uL (0.20-1.00); Monocytes % (A) 10.7 %; Neutrophils % (A) 64.4 %; Platelet Count 243 10*3/uL (140-440)
[2024-07-24] MEDS ORDERED: ALBUTEROL NEBULIZED 2.5 MG/3 ML INHALATION PRN (15:00)
--- NOTE | 2024-07-24 15:05 | P.HPIM ---
History of Present Illness H&P Date: 07/24/24 Chief Complaint: Abdominal pain Patient is a 64-year-old male with known history of stage IV prostate cancer and recent URI with significant cough presents here with complaints of abdominal pain. Patient states that he has been sick for a week with upper respiratory infection and cough. Patient was also started on prednisone by his primary care physician. He started having right lower quadrant abdominal pain. This morning when he woke up the pain worsened and made him come to ER. [place] like a flushing sensation across the abdominal wall. Denied any fever or chills. No nausea or vomiting or diarrhea. CT of the abdomen pelvis in the ER showed right rectus sheath intramuscular hematoma measuring 8.4 cm, 7.1 x 3.3 cm. Mild hepatomegaly at 18.4 cm New patchy interstitial opacities at the lung bases correlate for bronchitis, pulm aspiration or developing pneumonitis. Interval development of slight enlargement of the patient's left adrenal nodule compared to 11/26/2019. The nodule previously measured 2.3 cm and currently measured 3.4 cm. Consider 6 to 12-month follow-up. Chest x-ray showed increased interstitial density could reflect bronchitis, chronic asthma or atypical pneumonias. Clinically correlate. Review of Systems Constitutional: Patient denies any fever or chills . No generalized weakness or weight loss. Abdomen: Patient denied nausea vomiting and diarrhea. Positive for right lower quadrant abdominal pain. Cardiovascular: Patient denies any chest pain or short of breath no palpitations. Respiratory: patient does have cough without sputum production.. No shortness of breath Neurologic: Patient denied any numbness or tingling. no headache. Musculoskeletal: Patient denies any complaints of joint swelling or deformity. Skin: Negative Psychiatric: Negative Endocrine: No heat or cold intolerance. No recent weight gain. Genitourinary: No dysuria or hematuria. All other 14 point ROS negative except the above Past Medical History Additional Past Medical History / Comment(s): Stage 4 prostate cx. Covid - 10-30-2021 History of Any Multi-Drug Resistant Organisms: None Reported Past Surgical History: No Surgical Hx Reported Past Psychological History: No Psychological Hx Reported Smoking Status: Never smoker Past Alcohol Use History: Occasional Past Drug Use History: None Reported Medications and Allergies Home Medications Medication Instructions Recorded Confirmed Type Albuterol Nebulized [Ventolin 2.5 mg INHALATION RT-Q4H PRN 07/24/24 07/24/24 History Nebulized] Azithromycin [Zithromax Z Pack] See Taper PO DIRECTED 07/24/24 07/24/24 History Chlorpheniramine/Dextromethorp 2 tab PO HS PRN 07/24/24 07/24/24 History [Coricidin Hbp Cough & Cold Tab] Ibuprofen [Motrin Ib] 200 mg PO Q8H PRN 07/24/24 07/24/24 History predniSONE [Deltasone] 20 mg PO DAILY 07/24/24 07/24/24 History Allergies Allergy/AdvReac Type Severity Reaction Status Date / Time No Known Allergies Allergy Verified 07/24/24 09:58 Physical Exam Vitals: Vital Signs Temp Pulse Resp BP Pulse Ox 07/24/24 10:30 98.5 F 56 L 18 145/71 92 L 07/24/24 09:30 60 18 133/68 92 L 07/24/24 08:40 60 18 162/67 91 L 07/24/24 07:19 98.5 F 64 16 186/84 93 L 07/24/24 06:25 97.4 F L 79 18 191/94 95 Intake and Output 07/23/24 07/24/24 07/24/24 22:59 06:59 14:59 Other: Weight 115.666 kg PHYSICAL EXAMINATION: Patient is lying in the bed comfortably, no acute distress, awake alert and oriented.. HEENT: Normocephalic. Neck is supple. Pupils reactive. Nostrils clear. Oral cavity is moist. Neck reveals no JVD, carotid bruits, or thyromegaly. CHEST EXAMINATION: Trachea is central. Symmetrical expansion. Lung wong clear to auscultation and percussion. CARDIAC: Normal S1, S2 with no gallops. No murmurs ABDOMEN: Soft. Bowel sounds present, mild right lower abdomen tenderness with deep palpation. No organomegaly. No abdominal bruits. Extremities: reveal no edema. No clubbing or cyanosis Neurologically awake, alert, oriented x3 with well-coordinated movements. No focal deficits noted Skin: No rash or skin lesions. Psychiatric: Coperative. Nonsuicidal Musculoskeletal: No joint swelling or deformity. Normal range of motion. Results CBC & Chem 7: 07/24/24 14:34 07/24/24 06:53 Labs: Abnormal Lab Results - Last 24 Hours (Table) 07/24/24 Range/Units 06:53 Creatinine 0.61 L (0.66-1.25) mg/dL Glucose 100 H (74-99) mg/dL Thrombosis Risk Factor Assmnt - DVT/VTE Prophylaxis DVT/VTE Prophylaxis: Mechanical Prophylaxis ordered Assessment and Plan Assessment: Right rectus sheath intramuscular hematoma measuring 8.4 x 7.1 and 3.3 cm. Right lower quadrant abdominal pain secondary to above Acute tracheobronchitis Mild acute blood loss anemia secondary to above Recent upper respiratory infection with bronchospasm and cough. Stage IV prostate cancer History of COVID-19 infection GI prophylaxis with PPI and SCDs for DVT prophylaxis. Plan: Patient will be continued on pain management. Ice packs. continue to monitor H&H. Was given IV hydration in the ER with RingerS lactate. Continue with azithromycin and prednisone dose as per home regimen. General surgery is on board. Time with Patient: Greater than 30
[2024-07-24] MEDS: predniSONE 20 MG TAB PO SCH (16:02)
[2024-07-24] MEDS: AZITHROMYCIN 500 MG TAB PO SCH (16:02)
[2024-07-25] MEDS: PANTOPRAZOLE 40 MG/10 ML VIAL IV SCH (09:30)
[2024-07-25 10:18] LABS: Basophils # (A) 0.01 X 10*3/uL (0.00-0.10); Basophils % (A) 0.2 %; Eosinophils # (A) 0.01 X 10*3/uL (0.04-0.35); Eosinophils % (A) 0.2 %; HGB 12.6 g/dL (13.0-17.0); Lymphocytes # (A) 1.43 X 10*3/uL (0.90-5.00); MCH 28.9 pg (27.0-32.0); MCHC 33.2 g/dL (32.0-37.0); MCV 87.2 FL (80.0-97.0); Mean Platelet Volume 10.2 FL (9.5-12.2); Monocytes # (A) 0.58 X 10*3/uL (0.20-1.00); Monocytes % (A) 8.9 %; NRBC Per 100 WBC 0 X 10*3/uL (0.00-0.01); Neutrophils # (A) 4.44 X 10*3/uL (1.80-7.70); Neutrophils % (A) 68.4 %; Platelet Count 255 X 10*3/uL (140-440); RBC 4.36 X 10*6/uL (4.40-5.60); RDW 12.9 % (11.5-14.5); WBC 6.49 X 10*3/uL (4.50-10.00)
[2024-07-25 11:31] LABS: BUN/Creat Ratio 18.86 Ratio (12.00-20.00); Blood Urea Nitrogen 13.2 mg/dL (9.0-27.0); Calcium 8.4 mg/dL (8.7-10.3); Carbon Dioxide 26.7 mmol/L (21.6-31.8); Chloride 106 mmol/L (96-109); Glucose 100 mg/dL (70-110); Potassium 4.2 mmol/L (3.5-5.5); Sodium 140 mmol/L (135-145)
--- NOTE | 2024-07-25 14:05 | P.PN ---
Progress Note - Text Progress Note Date: 07/25/24 No acute events overnight. Abdominal pain is improved. VSS General-NAD CVS-RRR Lungs-NLB Abdomen-soft, NTND 64 year old male with rectus sheath hematoma -CT-AP reviewed and there is no active extravasation -OK to apply ice packs to abdomen -If hemoglobin remains stable, patient can be discharge from surgery standpoint -Regular Diet Tod Boykin DO [facility] [phone]
[2024-07-25 15:41] VITALS: BP 147/73; PULSE 67; RESP 19; TEMP 98.2
== END 2024-07-25 16:53 | disposition home or self-care (01) ==
LOC: EC 06:24 → 4SSUR 09:33
PROVIDERS: ADMIT Internal Medicine; ATTEND Internal Medicine
DX: S30.1XXA Contusion of abdominal wall, initial encounter (principal); X58.XXXA Exposure to other specified factors, initial encounter; D62 Acute posthemorrhagic anemia; J20.9 Acute bronchitis, unspecified; Z86.16 Personal history of COVID-19; Z85.46 Personal history of malignant neoplasm of prostate
CPT/HCPCS: 96361; 96374; 96375; 99285; 36415; 93005; 80053; 80048; 82150; 83605; 83690; 85025 ×2; 85610; 85730; 81003; 71046; 74177; G0378 ×2; J2270; J2405; J1885; J7512 ×2; J1171; Q9967; J2470

== ENCOUNTER → 2024-10-23 | Outpatient (CLI) | payer MEDICARE | END | disposition home or self-care (01) | LOC: LABWHC1 13:12 | PROVIDERS: ATTEND Urology | DX: C61 Malignant neoplasm of prostate (principal) | CPT/HCPCS: 36415; 84153; 84402 ==